=== PATIENT | male | born 1950 | race Caucasian/White ===

== ENCOUNTER → 2017-07-11 | Outpatient (CLI) | payer OTHER ==
[2013-08-18 10:34] VITALS: BP 134/75
--- NOTE | 2017-07-11 13:01 | CT ---
Indication: Shortness of breath Exam: CT chest without contrast. Comparison: Multiple prior studies, the most recent which are from 08/08/2015 Technique: Axial spiral images were obtained from the level above the clavicles through the adrenals without contrast. Coronal and sagittal multiplanar reconstructions were performed. Automated does con trol was utilized. Findings: The thyroid gland is unremarkable. There is moderate calcified plaque throughout the aorta which is normal caliber but unchanged. There are small lymph nodes scattered in the mediastinum measu ring less than 1 cm and appear grossly unchanged. There are moderate coronary artery calcifications w hich are unchanged . There are rounded calcifications in the gallbladder which are better visualized. There are several renal cysts along the upper poles of both kidneys measuring up to 5 cm which are u nchanged. There is a tiny renal stone along the upper pole left kidney with no hydronephrosis which i s unchanged. The lungs are hyperinflated and emphysematous with bullous lesions along both upper lobe s. There is mild linear scarring along the upper lobes which is unchanged. There is moderate intersti tial prominence along the lung bases which is more prominent on the right and is unchanged. There is a 4 mm nodule along the left lower lobe which is unchanged. There small nodules scattered along the r ight lower lobe superiorly measuring up to 6 mm which are unchanged. No effusion or consolidation is seen and there is no new nodule. Degenerative changes are seen in the spine with no aggressive osseou s lesion. Impression: Stable pulmonary nodules scattered along both lung bases with no new nodules seen. These probably rep resent noncalcified granulomas. Bullous emphysematous changes of the lungs with bibasilar fibrosis and scarring which is unchanged wi th no acute infiltrate or effusion. Small lymph nodes in the mediastinum which are not pathologic by size criterion are unchanged. Moderate coronary artery calcifications which are unchanged. Cholelithiasis which more apparent. Probable renal cysts bilaterally which are unchanged. Suggest ultrasound correlation. Reported By:
== END ==
LOC: RAD 10:41
PROVIDERS: ATTEND Nurse Practitioner Family
DX: J44.9 Chronic obstructive pulmonary disease, unspecified (principal); R22.2 Localized swelling, mass and lump, trunk
CPT/HCPCS: 71250

== ENCOUNTER 2018-02-02 02:57 | Inpatient (IN) ==
[2018-02-02 03:05] VITALS: BMI 26.3
[2018-02-02] MEDS ORDERED: SOLU-Medrol 125 MG VIAL ONE (03:07)
[2018-02-02] MEDS ORDERED: DUONEB 0.5 MG/3 MG ONE (03:07)
[2018-02-02] MEDS ORDERED: CATAPRES TAB 0.1 MG ONE (03:07)
[2018-02-02] MEDS ORDERED: CATAPRES TAB 0.1 MG PO ONE (03:09)
[2018-02-02] MEDS ORDERED: NS 1000 ML 1,000 ML IV ONE (03:09)
[2018-02-02] MEDS ORDERED: DUONEB 0.5 MG/3 MG NEB ONE (03:10)
[2018-02-02] MEDS ORDERED: SOLU-Medrol 125 MG VIAL IVP ONE (03:12)
[2018-02-02] MEDS ORDERED: NS 1000 ML 1,000 ML ONE (03:18)
--- NOTE | 2018-02-02 03:31 | DR.CP ---
HPI Time Seen Time Seen by Provider: 02/02/18 03:08 PCP Primary Care Physician: tameka patel Complaint Chief Complaint Doctor Comments: Patient presents with dyspnea, back pain and Chief Complaint:: chest pain, back pain, difficulty breathing Source History Provided: Patient Mode of Arrival Mode of Arrival: EMS Timing Onset of Chief Complaint: 02/02/18 PMH PMH Past Medical History: Yes Past Medical History: COPD, Coronary Artery Disease, Hypertension and [place] Past Surgical History: Yes Surgical History: Abdominal Surgery and Angioplasty/Stents Family History History of Family Medical Conditions: Yes Family Medical History: Diabetes Mellitus and [place] Social History Does patient currently use any type of tobacco product: No Have you used tobacco products in the last 12 months: No Type of Tobacco Use: None Does any household member use tobacco: No Alcohol Use: None Do you use any recreational Drugs:: No Lives With: Family Lives Where: Home infectious screening In the last 2 months have you had wt loss of >10#?: NO Have you had fever, night sweats or hemotysis?: No Have you traveled outside the country in the last 6 months?: No Isolation: Standard PE Vitals Vitals: Temperature 99.1 F Pulse Rate [Left Brachial] 100 Pulse Rate 102 Respiratory Rate 22 Blood Pressure [Left Arm] 111/73 Blood Pressure 180/80 O2 Sat by Pulse Oximetry 94 General Limitations: No Limitations General Appearance: Alert, In No Apparent Distress and In Distress Head Head Exam: Normal Inspection, Atraumatic and Normocephalic Eyes Eye exam: Normal Appearance, PERRL and EOMI ENT ENT Exam: Normal Exam, Normal Oropharynx and Normal External Ear Exam Chest Chest Inspection: Normal Inspection and Symmetric Chest Wall Rise Respiratory Respiratory Exam: Normal Lung Sounds Bilat Respiratory Exam: Bilateral: Wheezing (prolong expiratory phase) Cardiovascular Cardiovascular Exam: Regular Rate and Normal Rhythm Abdominal Exam Abdominal Exam: Normal Inspection, Normal Bowel Sounds and Soft Abdominal Tenderness: RUQ, RLQ and LUQ Extremities Extremities Exam: Normal Inspection and Full ROM Back Back Exam: Normal Inspection and Full ROM Neurologic Neurological Exam: Alert, Oriented X3 and CN II-XII Intact Psychiatric Psychiatric Exam: Normal Affect, Normal Mood and Flat Affect Skin Skin Exam: Dry and Intact ROR Labs Reviewed Result Diagrams: 02/02/18 03:25 02/02/18 03:25 Laboratory: WBC 12.5 X10^3/uL (3.6-10.0) H 02/02/18 03:25 RBC 6.47 X10^6/uL (4.7-6.0) H 02/02/18 03:25 Hgb 19.7 g/dL (13.5-18.0) H* 02/02/18 03:25 Hct 60.0 % (42.0-54.0) H* 02/02/18 03:25 MCV 92.7 fL (80.0-100.0) 02/02/18 03:25 MCH 30.5 pg (27.0-34.0) 02/02/18 03:25 MCHC 32.9 g/dL (33.0-35.0) L 02/02/18 03:25 RDW 15.8 % (11.6-16.5) 02/02/18 03:25 Plt Count 170 X10^3/uL (150.0-450.0) 02/02/18 03:25 MPV 8.2 fL (7.4-11.0) 02/02/18 03:25 Neut % (Auto) 67.0 % (42.0-75.0) 02/02/18 03:25 Lymph % (Auto) 24.9 % (21.0-51.0) 02/02/18 03:25 [place] % (Auto) 4.3 % (0.0-13.0) 02/02/18 03:25 Eos % (Auto) 3.0 % (0.9-2.9) H 02/02/18 03:25 Baso % (Auto) 0.8 % (0.2-1.0) 02/02/18 03:25 Neut # (Auto) 8.4 x10^3/uL (2.2-4.8) H 02/02/18 03:25 Lymph # (Auto) 3.1 X10^3/uL (1.3-2.9) H 02/02/18 03:25 [place] # (Auto) 0.5 x10^3/uL (0.3-0.8) 02/02/18 03:25 Eos # (Auto) 0.4 x10^3/uL (0.0-0.2) H 02/02/18 03:25 Baso # (Auto) 0.1 X10^3/uL (0.0-0.1) 02/02/18 03:25 Absolute Nucleated RBC 0.2 /100WBC 02/02/18 03:25 Sample Site Rr 02/02/18 06:46 ABG pH 7.290 (7.35-7.45) L 02/02/18 06:46 ABG pCO2 42.0 mmHg (35.0-45.0) 02/02/18 06:46 ABG pO2 81.0 mmHg (80.0-100.0) 02/02/18 06:46 ABG HCO3 20.2 mmol/L (22-26) L 02/02/18 06:46 ABG O2 Saturation 94.0 % (90-100) 02/02/18 06:46 ABG Base Excess -6.1 mmol/L (-2.0-2.0) L 02/02/18 06:46 Diomedes Test Pos 02/02/18 06:46 A-a Gradient 580.0 mmHg 02/02/18 06:46 FiO2 100 02/02/18 06:46 Blood Gas Comments Pt jessie well ej 02/02/18 06:46 Sodium 144 mmol/L (136-145) 02/02/18 03:25 Corrected Sodium 145 mmol/L (136-145) 02/02/18 03:25 Potassium 4.6 mmol/L (3.5-5.1) 02/02/18 03:25 Chloride 108 mmol/L (98-107) H 02/02/18 03:25 Carbon Dioxide 28.6 mmol/L (21-32) 02/02/18 03:25 BUN 13 mg/dL (7-18) 02/02/18 03:25 Creatinine 1.48 mg/dL (0.70-1.30) H 02/02/18 03:25 Est GFR (MDRD) Af Amer > 60 (>60) 02/02/18 03:25 Est GFR (MDRD) Non-Af 50 (>60) L 02/02/18 03:25 Glucose 159 mg/dL (65-99) H 02/02/18 03:25 Calcium 8.5 mg/dL (8.5-10.1) 02/02/18 03:25 Corrected Calcium TNP 02/02/18 03:25 Total Bilirubin 1.40 mg/dL (0.2-1.0) H 02/02/18 03:25 AST 25 Units/L (15-37) 02/02/18 03:25 ALT 23 Units/L (12-78) 02/02/18 03:25 Alkaline Phosphatase 64 Units/L (46-116) 02/02/18 03:25 Creatine Kinase 58 Units/L (39-308) 02/02/18 03:25 CK-MB (CK-2) 1.8 ng/mL (0-4.0) 02/02/18 03:25 CK/CKMB % Calc 3.1 % (<4) 02/02/18 03:25 Troponin I 0.01 ng/mL (0-1.5) 02/02/18 03:25 Total Protein 6.7 g/dL (6.4-8.2) 02/02/18 03:25 Albumin 3.8 g/dL (3.4-5.0) 02/02/18 03:25 Globulin 2.9 g/dL (2.5-4.5) 02/02/18 03:25 Albumin/Globulin Ratio 1.3 Ratio (1.1-2.1) 02/02/18 03:25 Diagnosis Discharge Problem: Acute respiratory acidosis, COPD (chronic obstructive pulmonary disease), Multifocal pneumonia
[2018-02-02 03:34] LABS: BASOPHILS # (AUTO) 0.1 X10^3/uL (0.0-0.1); BASOPHILS % (AUTO) 0.8 % (0.2-1.0); EOSINOPHILS # (AUTO) 0.4 x10^3/uL (0.0-0.2); LYMPHOCYTES # (AUTO) 3.1 X10^3/uL (1.3-2.9); LYMPHOCYTES % (AUTO) 24.9 % (21.0-51.0); MEAN CORPUSCULAR HEMOGLOBIN 30.5 pg (27.0-34.0); MEAN CORPUSCULAR HGB CONC 32.9 g/dL (33.0-35.0); MEAN CORPUSCULAR VOLUME 92.7 fL (80.0-100.0); MEAN PLATELET VOLUME 8.2 fL (7.4-11.0); MONOCYTES # (AUTO) 0.5 x10^3/uL (0.3-0.8); MONOCYTES % (AUTO) 4.3 % (0.0-13.0); NEUTROPHILS # (AUTO) 8.4 x10^3/uL (2.2-4.8); PLATELET COUNT 170 X10^3/uL (150.0-450.0); RED BLOOD COUNT 6.47 X10^6/uL (4.7-6.0); RED CELL DISTRIBUTION WIDTH 15.8 % (11.6-16.5); WHITE BLOOD COUNT 12.5 X10^3/uL (3.6-10.0)
[2018-02-02 03:36] LABS: ABG BASE EXCESS -4.7 mmol/L (-2.0-2.0)
[2018-02-02 03:37] LABS: ABG HCO3 24.4 mmol/L (22-26)
[2018-02-02 03:38] LABS: ABG ALLEN TEST POS; FRACTIONATED INSPIRED OXYGEN 100
[2018-02-02 03:50] LABS: HEMOGLOBIN 19.7 g/dL (13.5-18.0)
[2018-02-02 03:56] LABS: BLOOD UREA NITROGEN 13 mg/dL (7-18); CALCIUM 8.5 mg/dL (8.5-10.1); CARBON DIOXIDE 28.6 mmol/L (21-32); CHLORIDE 108 mmol/L (98-107); COR NA(FOR HYPERGLY) 145 mmol/L (136-145); CREATININE 1.48 mg/dL (0.70-1.30); SODIUM 144 mmol/L (136-145); eGFR NON BLACK RACES 50 (>60)
--- NOTE | 2018-02-02 03:58 | RAD ---
Chest AP portable Indication: Dyspnea. Comparison: 11/21/2017 Findings: There is cardiomegaly without pneumothorax. Patchy right lower lung opacity noted. COPD oscar nge noted. Patchy left lower lung opacity is less conspicuous in the right lower lung opacity. Impression: Cardiomegaly and COPD change with worsening right lower lung opacity suggesting pneumonia . Follow-up to resolution to exclude underlying lesion. Multifocal left lower lung pneumonia may be p resent as well. Reported By:
[2018-02-02 04:00] LABS: ALANINE AMINOTRANSFERASE 23 Units/L (12-78); ALBUMIN 3.8 g/dL (3.4-5.0); ALKALINE PHOSPHATASE 64 Units/L (46-116); ASPARTATE AMINO TRANSFERASE 25 Units/L (15-37); TOTAL PROTEIN 6.7 g/dL (6.4-8.2)
[2018-02-02 04:03] LABS: CKMB % 3.1 % (<4); CREATINE KINASE MB 1.8 ng/mL (0-4.0)
[2018-02-02 04:04] LABS: TROPONIN I 0.01 ng/mL (0-1.5)
[2018-02-02] MEDS ORDERED: SALINE 3% 15 ML NEB TX ONE (04:36)
[2018-02-02] MEDS ORDERED: SALINE 3% 15 ML NEB TX NEB ONE (04:45)
[2018-02-02 04:54] LABS: ABG BASE EXCESS -6.3 mmol/L (-2.0-2.0); FRACTIONATED INSPIRED OXYGEN 100
[2018-02-02] MEDS: LEVAQUIN PREMIX IV 750 MG 750 MG/150 ML BAG IV SCH ×2 (05:02→09:17)
[2018-02-02] MEDS ORDERED: ALBUTEROL SULFATE INH PRN (05:56)
[2018-02-02] MEDS ORDERED: ZOFRAN INJ 4 MG VIAL IVP PRN (06:02)
[2018-02-02] MEDS ORDERED: ROBITUSSIN DM PO PRN (06:02)
[2018-02-02] MEDS ORDERED: TYLENOL 325 MG TAB PO PRN (06:02)
[2018-02-02 07:00] LABS: ABG ALLEN TEST POS; ABG BASE EXCESS -6.1 mmol/L (-2.0-2.0); ABG HCO3 20.2 mmol/L (22-26); FRACTIONATED INSPIRED OXYGEN 100
[2018-02-02] MEDS: TYLENOL 325 MG TAB PO PRN ×2 (07:12→23:22)
[2018-02-02] MEDS ORDERED: ZESTRIL TAB 10 MG PO SCH (09:00)
[2018-02-02] MEDS ORDERED: DUONEB 0.5 MG/3 MG NEB SCH (09:00)
[2018-02-02] MEDS ORDERED: PATIENT'S HOME MEDICATION (Lisinopril 10 MG) PO SCH (09:00)
[2018-02-02] MEDS ORDERED: TOPROL XL PO SCH (09:00)
[2018-02-02 09:14] LABS: HEMOGLOBIN 19.8 g/dL (13.5-18.0)
[2018-02-02 09:15] LABS: HEMATOCRIT 58.7 % (42.0-54.0)
[2018-02-02] MEDS: BROVANA IN SCH ×2 (09:18→21:59)
[2018-02-02] MEDS: DUONEB 0.5 MG/3 MG NEB SCH ×4 (09:18→21:59)
[2018-02-02] MEDS: PULMICORT NEB TX 0.5 MG NEB SCH ×2 (09:18→21:59)
[2018-02-02 09:31] LABS: CKMB % 3.1 % (<4); CREATINE KINASE MB 1.9 ng/mL (0-4.0); TROPONIN I 0.05 ng/mL (0-1.5)
[2018-02-02] MEDS ORDERED: PREVNAR 13 IM ONE (10:07)
[2018-02-02] MEDS: NS 1000 ML 1,000 ML IV SCH ×2 (10:11→21:24)
--- NOTE | 2018-02-02 11:37 | DR.H&P ---
H&P - History & Physical for Day of: H&P Date: 02/02/18 - Chief Complaint Chief Complaint: sob, "cannot get a breath" - History of Present Illness History of Present Illness: 67 WM ER ADMISSION WITH CO SUDDEN ONSET OF INCREASED SOB, PT STATES HE COULD NOT GET BREATH "GULPING". PT CALLED EMS, PT WAS HYPOXIC ON ARRIVAL TO ED. PT HAD ABNORMAL CXR SUGGESTION PNEUMONIA. PT WAS PLACED ON BIPAP ADMITTED TO ICU. 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 PT HAS PMH OF CAD, WITH ANGIOPLASTY AND STENT PLACEMENT LAST CATH IN ~[address] FRITZ AT [facility]. 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 PT USES O2. - Past Medical History Past Medical History: [place], Coronary Artery Disease, Hypertension, COPD - Past Surgical History Surgical History: Abdominal Surgery, Angioplasty/Stents - Family History Family Medical History: Diabetes Mellitus, [place] - Social History Does patient currently use any type of tobacco product: No Have you used tobacco products in the last 12 months: No Type of Tobacco Use: None Does any household member use tobacco: No Alcohol Use: None Drug Use: None - Medications Home Medications: No Known Drug Allergies Allergy (Verified 02/02/18 03:06) CONTINUE taking the following medications aspirin 81 mg PO QDAY 02/02/18 [History] atorvastatin 20 mg PO QDAY 02/02/18 [History] carvedilol 12.5 mg PO BID 02/02/18 [History] - Review of Systems Constitutional: Weakness Eyes: No Symptoms Reported ENT: Nose Congestion Respiratory: Shortness of Breath, SOB with Excertion, Wheezing Cardiovascular: Chest Pain, Edema Gastrointestinal: No Symptoms Reported Genitourinary: No Symptoms Reported Musculoskeletal: Back Pain Skin: No Symptoms Reported Neurological: Weakness - Physical Exam Vital Signs: Temperature 98 F Pulse Rate [Left Brachial] 81 Pulse Rate 97 Respiratory Rate 20 Blood Pressure [Left Arm] 112/68 Blood Pressure 180/80 O2 Sat by Pulse Oximetry 96 Oriented: Normal Eyes: Normal Ear: Normal Nose: Normal Throat: Dry Respiratory: Diminished Throughout, RLL Rhonchi, LLL Rhonchi Cardiovascular: Tachycardia, Edema : Normal Auscultation: Bowel Sounds: Normal Palpation: Normal Tenderness: Normal Skin: Decreased Turgur Musculoskeletal: Back:Lumbar Psychiatric: Anxiety Mood Description: Anxious Affect: Anxious Speech Pattern: Clear (BUT LABORED RESPIRATIONS) - Assessment/Plan (1) SOB (shortness of breath) Status: Acute Plan: ADMIT, ICU, BIPAP, SUPPLEMENTAL O2, SERIAL CE. EKGS CXR ON ADMISSION, SERIAL ABG'S. JET NEBS, BLOOD AND SPUTUM CULTURES ORDERED ON ADMISSION. LOVENOX SQ, BP AND CARDIAC MONITORING. IV ATBX, VERIFY HOME MEDS (2) Acute respiratory acidosis Status: Acute (3) COPD (chronic obstructive pulmonary disease) Qualifiers: COPD type: COPD with acute exacerbation Qualified Code(s): J44.1 - Chronic obstructive pulmonary disease with (acute) exacerbation Status: Acute (4) Multifocal pneumonia Status: Acute - Allergies Allergies/Adverse Reactions: Allergies Allergy/AdvReac Type Severity Reaction Status Date / Time No Known Drug Allergies Allergy Verified 02/02/18 03:06
[2018-02-02] MEDS ORDERED: NS 100 ML IV + SPIKE MINIBAG* 100 ML IV ONE ×2 (13:58→20:59)
[2018-02-02] MEDS: ZOSYN VIAL 4.5 GRAMS IV SCH ×2 (14:16→21:25)
[2018-02-02 14:29] LABS: BILIRUBIN,URINE NEGATIVE (NEGATIVE); BLOOD/HEMOGLOBIN,URINE NEGATIVE (NEGATIVE); GLUCOSE, URINE NEGATIVE (NEGATIVE); KETONES,URINE 1+ (NEGATIVE); LEUKOCYTE ESTERASE ,URINE NEGATIVE (NEGATIVE); NITRITES,URINE NEGATIVE (NEGATIVE); PROTEIN,URINE 2+ (NEGATIVE); UROBILINOGEN,URINE NORMAL (NORMAL)
[2018-02-02 15:01] LABS: AMORPHOUS SEDIMENT,UR 1+ /HPF (NEGATIVE); APPEARANCE,URINE CLOUDY (CLEAR); BACTERIA,URINE TRACE /HPF (NEGATIVE); CALCIUM OXALATE CRYSTALS,UR FEW /HPF (NEGATIVE); COLOR,URINE DARK YELLOW (YELLOW); MUCUS,URINE FEW /HPF (NEGATIVE); RBC,URINE 0-2 /HPF (NONE SEEN); SQUAMOUS EPITHELIAL CELL,UR FEW /HPF (NEGATIVE)
[2018-02-02 16:19] LABS: CREATINE KINASE MB 1.9 ng/mL (0-4.0); TROPONIN I 0.03 ng/mL (0-1.5)
[2018-02-02] MEDS: SOLU-Medrol 40 MG VIAL IVP SCH (21:25)
[2018-02-03] MEDS: DUONEB 0.5 MG/3 MG NEB SCH ×6 (01:15→21:57)
[2018-02-03] MEDS ORDERED: NS 500 ML IV 500 ML IV ONE (01:25)
[2018-02-03] MEDS ORDERED: NS 100 ML IV + SPIKE MINIBAG* 100 ML IV ONE ×3 (04:19→21:03)
[2018-02-03] MEDS: SOLU-Medrol 40 MG VIAL IVP SCH ×3 (05:11→21:09)
[2018-02-03] MEDS: ZOSYN VIAL 4.5 GRAMS IV SCH ×3 (05:12→21:12)
[2018-02-03 06:22] LABS: ABG BASE EXCESS -11.1 mmol/L (-2.0-2.0)
[2018-02-03 06:23] LABS: ABG HCO3 12.4 mmol/L (22-26); FRACTIONATED INSPIRED OXYGEN 80
[2018-02-03 06:36] LABS: BASOPHILS % (AUTO) 0.2 % (0.2-1.0); HEMATOCRIT 51.3 % (42.0-54.0); HEMOGLOBIN 17.1 g/dL (13.5-18.0); LYMPHOCYTES # (AUTO) 0.9 X10^3/uL (1.3-2.9); LYMPHOCYTES % (AUTO) 9.8 % (21.0-51.0); MEAN CORPUSCULAR HEMOGLOBIN 30.8 pg (27.0-34.0); MEAN CORPUSCULAR HGB CONC 33.4 g/dL (33.0-35.0); MEAN PLATELET VOLUME 8.6 fL (7.4-11.0); MONOCYTES # (AUTO) 0.5 x10^3/uL (0.3-0.8); MONOCYTES % (AUTO) 6.1 % (0.0-13.0); NEUTROPHILS # (AUTO) 7.5 x10^3/uL (2.2-4.8); NEUTROPHILS % (AUTO) 83.9 % (42.0-75.0); PLATELET COUNT 96 X10^3/uL (150.0-450.0); RED BLOOD COUNT 5.57 X10^6/uL (4.7-6.0); RED CELL DISTRIBUTION WIDTH 15.6 % (11.6-16.5)
[2018-02-03 06:45] LABS: ALBUMIN 2.7 g/dL (3.4-5.0); CALCIUM 7.8 mg/dL (8.5-10.1); CARBON DIOXIDE 22.6 mmol/L (21-32); COR CA(FOR HYPOALB) 8.8 mg/dL (8.5-10.1); CREATININE 1.52 mg/dL (0.70-1.30); TOTAL PROTEIN 5.4 g/dL (6.4-8.2)
[2018-02-03] MEDS: LEVAQUIN PREMIX IV 500 MG 500 MG/100 ML BAG IV SCH (08:02)
[2018-02-03] MEDS: BROVANA IN SCH ×2 (09:19→21:57)
[2018-02-03] MEDS: PULMICORT NEB TX 0.5 MG NEB SCH ×2 (09:20→21:57)
--- NOTE | 2018-02-03 10:12 | RAD ---
HISTORY: Shortness of breath Study: Chest AP portable Comparison: 02/02/2018 Findings: Positioning is suboptimal as the costophrenic angles are not included on the image. The heart is mini seth enlarged. No congestive heart failure is noted. The lungs are generally hyperinflated. Intersti tial lung changes are present bilaterally. There is a superimposed alveolar infiltrate in the right l sean base suggestive of pneumonia. Pleural effusions cannot be excluded as the costophrenic angles are not included on the image. IMPRESSION: COPD with interstitial lung disease No change right lower lobe pneumonia Reported By:
[2018-02-03] MEDS: NS 1000 ML 1,000 ML IV SCH (10:28)
[2018-02-03] MEDS ORDERED: NS 100 ML IV 0 ML IV ONE (21:00)
[2018-02-03] MEDS ORDERED: NS 250 ML IV 0 ML IV ONE (21:01)
[2018-02-04] MEDS: NS 1000 ML 1,000 ML IV SCH ×3 (00:23→13:46)
[2018-02-04] MEDS: DUONEB 0.5 MG/3 MG NEB SCH ×6 (01:11→20:20)
[2018-02-04] MEDS ORDERED: NS 100 ML IV + SPIKE MINIBAG* 100 ML IV ONE ×3 (05:35→21:32)
[2018-02-04 05:49] LABS: BASOPHILS % (AUTO) 0.1 % (0.2-1.0); HEMATOCRIT 48.6 % (42.0-54.0); HEMOGLOBIN 16.4 g/dL (13.5-18.0); LYMPHOCYTES # (AUTO) 0.6 X10^3/uL (1.3-2.9); LYMPHOCYTES % (AUTO) 6.8 % (21.0-51.0); MEAN CORPUSCULAR HEMOGLOBIN 30.9 pg (27.0-34.0); MEAN CORPUSCULAR HGB CONC 33.7 g/dL (33.0-35.0); MEAN CORPUSCULAR VOLUME 91.6 fL (80.0-100.0); MEAN PLATELET VOLUME 8.5 fL (7.4-11.0); MONOCYTES # (AUTO) 0.6 x10^3/uL (0.3-0.8); MONOCYTES % (AUTO) 6.9 % (0.0-13.0); NEUTROPHILS # (AUTO) 7.9 x10^3/uL (2.2-4.8); NEUTROPHILS % (AUTO) 86.2 % (42.0-75.0); PLATELET COUNT 94 X10^3/uL (150.0-450.0); RED BLOOD COUNT 5.31 X10^6/uL (4.7-6.0); RED CELL DISTRIBUTION WIDTH 15.4 % (11.6-16.5); WHITE BLOOD COUNT 9.2 X10^3/uL (3.6-10.0)
[2018-02-04] MEDS: SOLU-Medrol 40 MG VIAL IVP SCH ×3 (05:49→21:49)
[2018-02-04] MEDS: ZOSYN VIAL 4.5 GRAMS IV SCH ×3 (05:50→21:50)
[2018-02-04 06:10] LABS: ALANINE AMINOTRANSFERASE 18 Units/L (12-78); ALBUMIN 2.5 g/dL (3.4-5.0); ALKALINE PHOSPHATASE 30 Units/L (46-116); ASPARTATE AMINO TRANSFERASE 14 Units/L (15-37); BLOOD UREA NITROGEN 24 mg/dL (7-18); CALCIUM 8.1 mg/dL (8.5-10.1); CARBON DIOXIDE 23.7 mmol/L (21-32); CHLORIDE 109 mmol/L (98-107); COR CA(FOR HYPOALB) 9.3 mg/dL (8.5-10.1); COR NA(FOR HYPERGLY) 142 mmol/L (136-145); CREATININE 1.17 mg/dL (0.70-1.30); SODIUM 141 mmol/L (136-145); TOTAL PROTEIN 5.4 g/dL (6.4-8.2); eGFR NON BLACK RACES > 60 (>60)
[2018-02-04 08:31] LABS: ABG ALLEN TEST POS; ABG BASE EXCESS -2.5 mmol/L (-2.0-2.0); ABG HCO3 22.5 mmol/L (22-26); FRACTIONATED INSPIRED OXYGEN 50
[2018-02-04] MEDS: BROVANA IN SCH ×2 (09:11→20:20)
[2018-02-04] MEDS: PULMICORT NEB TX 0.5 MG NEB SCH ×2 (09:12→20:20)
[2018-02-04] MEDS: LEVAQUIN PREMIX IV 500 MG 500 MG/100 ML BAG IV SCH (09:16)
--- NOTE | 2018-02-04 13:26 | PCM.PROG ---
Progress Note - Progress Note for Day of Date of Exam: 02/04/18 - Subjective Subjective: 67 WM ER ADMISSION WITH ACUTE ON CHRONIC RESP FAILURE, PNEUMONIA, AND CHEST PAIN. PT HAD SERIAL CE ENZYMES ON ADMISSION, ICU FOR CONTINUOUS CARDIAC MONITORING AND BIPAP MANAGEMENT. PT ABG THIS AM, PH 7.37 IMPROVING WITH PCO2 39, PT CONTINUES WITH BIPAP AT 50%, TAKEN OFF THIS AM TO EAT AND TOLERATED NASAL CANULA FOR SHORT PERIOD, SATS DROPPING INTO 80'S. DISCUSSED THE NEED FOR CARDIAC EVALUATION, PT AND FAMILY AGREES FOR TRANSFER TO TERTIARY CARE FACILITY. - Past Medical Family Social History Past Med/Fam/Surg Hx: No changes since H&P Allergies: Allergies No Known Drug Allergies Allergy (Verified 02/02/18 03:06) - Vital Signs and I&O's Vital Signs: Temperature 97.3 F Pulse Rate [Left Brachial] 67 Pulse Rate 89 Respiratory Rate 23 Blood Pressure [Left Arm] 125/70 Blood Pressure 131/70 O2 Sat by Pulse Oximetry 96 Intake and Output: Intake & Output 02/02/18 02/03/18 02/04/18 02/05/18 11:59 11:59 11:59 11:59 Intake Total 2850 / 2850 2660 / 2660 Output Total 800 / 800 500 / 500 Balance 2049 / 2049 2160 / 2160 - Physical Exam Oriented: Normal Eyes: Normal Ear: Normal Nose: Normal Throat: Dry Respiratory: Diminished Cardiovascular: Tachycardia, Edema : Normal Auscultation: Bowel Sounds: Normal Tenderness: Normal Skin: Decreased Turgur Musculoskeletal: Back:Lumbar Psychiatric: Anxiety Mood Description: Anxious Affect: Anxious Speech Pattern: Clear, Appropriate - Laboratory and Diagnostics Result Diagrams: 02/04/18 05:25 02/04/18 05:25 Labs: 02/02/18 04:30 Blood Blood Culture - Preliminary 02/02/18 04:20 Blood Blood Culture - Preliminary 02/02/18 14:07 Sputum - Expectorated Sputum Sputum Culture - Final 02/02/18 14:07 Sputum - Expectorated Sputum - Final Laboratory WBC 9.2 X10^3/uL (3.6-10.0) 02/04/18 05:25 RBC 5.31 X10^6/uL (4.7-6.0) 02/04/18 05:25 Hgb 16.4 g/dL (13.5-18.0) 02/04/18 05:25 Hct 48.6 % (42.0-54.0) 02/04/18 05:25 MCV 91.6 fL (80.0-100.0) 02/04/18 05:25 MCH 30.9 pg (27.0-34.0) 02/04/18 05:25 MCHC 33.7 g/dL (33.0-35.0) 02/04/18 05:25 RDW 15.4 % (11.6-16.5) 02/04/18 05:25 Plt Count 94 X10^3/uL (150.0-450.0) L 02/04/18 05:25 MPV 8.5 fL (7.4-11.0) 02/04/18 05:25 Neut % (Auto) 86.2 % (42.0-75.0) H 02/04/18 05:25 Lymph % (Auto) 6.8 % (21.0-51.0) L 02/04/18 05:25 [place] % (Auto) 6.9 % (0.0-13.0) 02/04/18 05:25 Eos % (Auto) 0.0 % (0.9-2.9) L 02/04/18 05:25 Baso % (Auto) 0.1 % (0.2-1.0) L 02/04/18 05:25 Neut # (Auto) 7.9 x10^3/uL (2.2-4.8) H 02/04/18 05:25 Lymph # (Auto) 0.6 X10^3/uL (1.3-2.9) L 02/04/18 05:25 [place] # (Auto) 0.6 x10^3/uL (0.3-0.8) 02/04/18 05:25 Eos # (Auto) 0.0 x10^3/uL (0.0-0.2) 02/04/18 05:25 Baso # (Auto) 0.0 X10^3/uL (0.0-0.1) 02/04/18 05:25 Absolute Nucleated RBC 0.0 /100WBC 02/04/18 05:25 Sample Site Rr 02/04/18 08:26 ABG pH 7.370 (7.35-7.45) 02/04/18 08:26 ABG pCO2 39.0 mmHg (35.0-45.0) 02/04/18 08:26 ABG pO2 64.0 mmHg (80.0-100.0) L 02/04/18 08:26 ABG HCO3 22.5 mmol/L (22-26) 02/04/18 08:26 ABG O2 Saturation 91.0 % (90-100) 02/04/18 08:26 ABG Base Excess -2.5 mmol/L (-2.0-2.0) L 02/04/18 08:26 Diomedes Test Pos 02/04/18 08:26 A-a Gradient 244.0 mmHg 02/04/18 08:26 FiO2 50 02/04/18 08:26 Blood Gas Comments Pt jessie well. cdn 02/04/18 08:26 Sodium 141 mmol/L (136-145) 02/04/18 05:25 Corrected Sodium 142 mmol/L (136-145) 02/04/18 05:25 Potassium 4.7 mmol/L (3.5-5.1) 02/04/18 05:25 Chloride 109 mmol/L (98-107) H 02/04/18 05:25 Carbon Dioxide 23.7 mmol/L (21-32) 02/04/18 05:25 BUN 24 mg/dL (7-18) H 02/04/18 05:25 Creatinine 1.17 mg/dL (0.70-1.30) 02/04/18 05:25 Est GFR (MDRD) Af Amer > 60 (>60) 02/04/18 05:25 Est GFR (MDRD) Non-Af > 60 (>60) 02/04/18 05:25 Glucose 155 mg/dL (65-99) H 02/04/18 05:25 Calcium 8.1 mg/dL (8.5-10.1) L 02/04/18 05:25 Corrected Calcium 9.3 mg/dL (8.5-10.1) 02/04/18 05:25 Total Bilirubin 1.20 mg/dL (0.2-1.0) H 02/04/18 05:25 AST 14 Units/L (15-37) L 02/04/18 05:25 ALT 18 Units/L (12-78) 02/04/18 05:25 Alkaline Phosphatase 30 Units/L (46-116) L 02/04/18 05:25 Creatine Kinase 95 Units/L (39-308) 02/02/18 15:28 CK-MB (CK-2) 1.9 ng/mL (0-4.0) 02/02/18 15:28 CK/CKMB % Calc 2.0 % (<4) 02/02/18 15:28 Troponin I 0.03 ng/mL (0-1.5) 02/02/18 15:28 Total Protein 5.4 g/dL (6.4-8.2) L 02/04/18 05:25 Albumin 2.5 g/dL (3.4-5.0) L 02/04/18 05:25 Globulin 2.9 g/dL (2.5-4.5) 02/04/18 05:25 Albumin/Globulin Ratio 0.9 Ratio (1.1-2.1) L 02/04/18 05:25 Specimen Type Clean catch urine 02/02/18 14:07 Urine Color Dark yellow (YELLOW) 02/02/18 14:07 Urine Appearance Cloudy (CLEAR) 02/02/18 14:07 Urine pH 5.0 (5.0 - 8.0) 02/02/18 14:07 Ur Specific Adkins 1.030 (1.000-1.030) 02/02/18 14:07 Urine Protein 2+ (NEGATIVE) 02/02/18 14:07 Urine Glucose (UA) Negative (NEGATIVE) 02/02/18 14:07 Urine Ketones 1+ (NEGATIVE) 02/02/18 14:07 Urine Occult Blood Negative (NEGATIVE) 02/02/18 14:07 Urine Nitrite Negative (NEGATIVE) 02/02/18 14:07 Urine Bilirubin Negative (NEGATIVE) 02/02/18 14:07 Urine Urobilinogen Normal (NORMAL) 02/02/18 14:07 Ur Leukocyte Esterase Negative (NEGATIVE) 02/02/18 14:07 Urine RBC 0-2 /HPF (NONE SEEN) 02/02/18 14:07 Urine WBC 0-2 /HPF (NONE SEEN) 02/02/18 14:07 Ur Squamous Epith Cells Few /HPF (NEGATIVE) 02/02/18 14:07 Calcium Oxalate Crystal Few /HPF (NEGATIVE) 02/02/18 14:07 Amorphous Sediment 1+ /HPF (NEGATIVE) 02/02/18 14:07 Urine Bacteria Trace /HPF (NEGATIVE) 02/02/18 14:07 Urine Mucus Few /HPF (NEGATIVE) 02/02/18 14:07 Ur Culture Indicated? No/not indicated 02/02/18 14:07 - Plan (1) SOB (shortness of breath) Status: Acute Plan: ICU, BIPAP, SUPPLEMENTAL O2, SERIAL CE. EKGS CXR ON ADMISSION, SERIAL ABG'S. JET NEBS, BLOOD AND SPUTUM CULTURES ORDERED ON ADMISSION. LOVENOX SQ, BP AND CARDIAC MONITORING. IV ATBX, AM LABS (2) Acute respiratory acidosis Status: Acute (3) COPD (chronic obstructive pulmonary disease) Status: Acute Qualifiers: COPD type: COPD with acute exacerbation Qualified Code(s): J44.1 - Chronic obstructive pulmonary disease with (acute) exacerbation (4) Multifocal pneumonia Status: Acute (5) Acute and chronic respiratory failure Status: Acute (6) Acute and chronic respiratory failure with hypoxia Status: Acute
[2018-02-05] MEDS: DUONEB 0.5 MG/3 MG NEB SCH ×6 (01:24→20:50)
[2018-02-05] MEDS: NS 1000 ML 1,000 ML IV SCH ×3 (03:30→21:42)
[2018-02-05] MEDS ORDERED: NS 100 ML IV + SPIKE MINIBAG* 100 ML IV ONE ×3 (04:44→21:35)
[2018-02-05] MEDS: SOLU-Medrol 40 MG VIAL IVP SCH ×3 (05:00→21:42)
[2018-02-05] MEDS: ZOSYN VIAL 4.5 GRAMS IV SCH ×3 (05:00→21:42)
[2018-02-05 05:55] LABS: BASOPHILS % (AUTO) 0.3 % (0.2-1.0); HEMATOCRIT 48.2 % (42.0-54.0); HEMOGLOBIN 16.3 g/dL (13.5-18.0); LYMPHOCYTES # (AUTO) 0.7 X10^3/uL (1.3-2.9); LYMPHOCYTES % (AUTO) 7.1 % (21.0-51.0); MEAN CORPUSCULAR HEMOGLOBIN 30.6 pg (27.0-34.0); MEAN CORPUSCULAR HGB CONC 33.9 g/dL (33.0-35.0); MEAN CORPUSCULAR VOLUME 90.4 fL (80.0-100.0); MEAN PLATELET VOLUME 8.5 fL (7.4-11.0); MONOCYTES # (AUTO) 0.6 x10^3/uL (0.3-0.8); MONOCYTES % (AUTO) 6.1 % (0.0-13.0); NEUTROPHILS # (AUTO) 8.1 x10^3/uL (2.2-4.8); NEUTROPHILS % (AUTO) 86.5 % (42.0-75.0); PLATELET COUNT 106 X10^3/uL (150.0-450.0); RED BLOOD COUNT 5.33 X10^6/uL (4.7-6.0); RED CELL DISTRIBUTION WIDTH 15.8 % (11.6-16.5); WHITE BLOOD COUNT 9.3 X10^3/uL (3.6-10.0)
[2018-02-05 06:15] LABS: ALANINE AMINOTRANSFERASE 20 Units/L (12-78); ALBUMIN 2.5 g/dL (3.4-5.0); ALKALINE PHOSPHATASE 34 Units/L (46-116); ASPARTATE AMINO TRANSFERASE 26 Units/L (15-37); BLOOD UREA NITROGEN 20 mg/dL (7-18); CALCIUM 8.3 mg/dL (8.5-10.1); CARBON DIOXIDE 24.6 mmol/L (21-32); CHLORIDE 110 mmol/L (98-107); COR CA(FOR HYPOALB) 9.5 mg/dL (8.5-10.1); COR NA(FOR HYPERGLY) 143 mmol/L (136-145); SODIUM 141 mmol/L (136-145); TOTAL PROTEIN 5.7 g/dL (6.4-8.2); eGFR NON BLACK RACES > 60 (>60)
[2018-02-05] MEDS: PULMICORT NEB TX 0.5 MG NEB SCH ×2 (08:33→20:50)
[2018-02-05] MEDS: BROVANA IN SCH ×2 (08:33→20:50)
[2018-02-05] MEDS: LEVAQUIN PREMIX IV 500 MG 500 MG/100 ML BAG IV SCH (08:36)
[2018-02-05] MEDS ORDERED: ASPIRIN 81 MG CHEWTAB PO SCH (11:00)
[2018-02-05] MEDS: LIPITOR TAB 20 MG PO SCH (11:30)
[2018-02-06] MEDS: DUONEB 0.5 MG/3 MG NEB SCH ×6 (00:51→21:23)
[2018-02-06] MEDS: NS 1000 ML 1,000 ML IV SCH (03:49)
[2018-02-06] MEDS ORDERED: NS 100 ML IV + SPIKE MINIBAG* 100 ML IV ONE ×3 (04:54→20:31)
[2018-02-06] MEDS: ZOSYN VIAL 4.5 GRAMS IV SCH ×3 (05:04→21:08)
[2018-02-06 06:22] LABS: BASOPHILS % (AUTO) 0 % (0.2-1.0); HEMATOCRIT 48.6 % (42.0-54.0); HEMOGLOBIN 16.5 g/dL (13.5-18.0); LYMPHOCYTES # (AUTO) 0.6 X10^3/uL (1.3-2.9); LYMPHOCYTES % (AUTO) 8.2 % (21.0-51.0); MEAN CORPUSCULAR HEMOGLOBIN 30.7 pg (27.0-34.0); MEAN CORPUSCULAR HGB CONC 33.9 g/dL (33.0-35.0); MEAN CORPUSCULAR VOLUME 90.8 fL (80.0-100.0); MEAN PLATELET VOLUME 8.7 fL (7.4-11.0); MONOCYTES # (AUTO) 0.5 x10^3/uL (0.3-0.8); MONOCYTES % (AUTO) 6.9 % (0.0-13.0); NEUTROPHILS # (AUTO) 5.9 x10^3/uL (2.2-4.8); NEUTROPHILS % (AUTO) 84.9 % (42.0-75.0); PLATELET COUNT 96 X10^3/uL (150.0-450.0); RED BLOOD COUNT 5.36 X10^6/uL (4.7-6.0); RED CELL DISTRIBUTION WIDTH 15.8 % (11.6-16.5); WHITE BLOOD COUNT 6.9 X10^3/uL (3.6-10.0)
[2018-02-06 06:34] LABS: ALANINE AMINOTRANSFERASE 31 Units/L (12-78); ALBUMIN 2.5 g/dL (3.4-5.0); ALKALINE PHOSPHATASE 46 Units/L (46-116); ASPARTATE AMINO TRANSFERASE 24 Units/L (15-37); BLOOD UREA NITROGEN 18 mg/dL (7-18); CALCIUM 8.1 mg/dL (8.5-10.1); CARBON DIOXIDE 26.1 mmol/L (21-32); CHLORIDE 108 mmol/L (98-107); COR CA(FOR HYPOALB) 9.3 mg/dL (8.5-10.1); COR NA(FOR HYPERGLY) 144 mmol/L (136-145); CREATININE 1.03 mg/dL (0.70-1.30); SODIUM 142 mmol/L (136-145); TOTAL PROTEIN 5.6 g/dL (6.4-8.2); eGFR NON BLACK RACES > 60 (>60)
[2018-02-06 06:56] LABS: BAND NEUTROPHILS % 3 % (0-10); PLATELET MORPHOLOGY COMMENT NORMAL (NORMAL)
--- NOTE | 2018-02-06 09:04 | RAD ---
HISTORY: Shortness of breath Study: Chest AP portable Comparison: 02/03/2018 Findings: The heart remains minimally enlarged. No definite congestive heart failure is noted. The lungs are ge nerally hyperinflated. Interstitial lung changes are present bilaterally not significantly different in appearance from the prior examination. The superimposed right basilar alveolar infiltrate noted on the prior examination has significantly improved. No definite pleural effusions are identified. IMPRESSION: COPD with interstitial lung changes Significant improvement in the superimposed right basilar alveolar infiltrate Reported By:
[2018-02-06] MEDS: BROVANA IN SCH ×2 (09:09→21:23)
[2018-02-06] MEDS: PULMICORT NEB TX 0.5 MG NEB SCH ×2 (09:09→21:23)
[2018-02-06] MEDS: ASPIRIN EC 81 MG PO SCH (10:19)
[2018-02-06] MEDS: LEVAQUIN PREMIX IV 500 MG 500 MG/100 ML BAG IV SCH (10:19)
[2018-02-06] MEDS: LIPITOR TAB 20 MG PO SCH (10:20)
[2018-02-06] MEDS: PROTONIX INJ 40 MG VIAL IVP SCH (10:20)
[2018-02-06] MEDS: ROBITUSSIN DM PO PRN ×2 (10:35→21:09)
[2018-02-06] MEDS ORDERED: NS 1000 ML 1,000 ML IV SCH (11:00)
[2018-02-06 16:15] LABS: ABG BASE EXCESS 1.5 mmol/L (-2.0-2.0); ABG HCO3 25.9 mmol/L (22-26)
[2018-02-06 16:16] LABS: ABG ALLEN TEST POS; FRACTIONATED INSPIRED OXYGEN 35
--- NOTE | 2018-02-06 16:23 | CT ---
STUDY: CTA CHEST WITH CONTRAST History: Shortness of breath. Low O2 saturations. Comparison: Chest radiograph from February 06, 2018. Technique: Multiple axial images of the chest were obtained from the thoracic inlet to the upper abdo men after the administration of IV contrast. Image acquisition was optimized for evaluation of pulmon peyman arterial system. 3D, coronal and sagittal reformatted images were performed and reviewed. Automat ed exposure control (AEC) was utilized to adjust the MA and/or kV. Findings: There is no evidence of abnormal filling defect in the main pulmonary arteries and their major branch es to indicate presence of acute pulmonary thromboembolic disease. There is no evidence of aortic ane urysm or dissection. There is no significant pericardial effusion. Multiple lymph nodes are noted in the mediastinum. There several enlarged sub-carinal lymph nodes that measure just over 2 cm. There is extensive emphysematous change throughout both lungs. There is focal consolidative airspace opacity in the dependent portion of the right lower lobe. There is a moderate size right-sided pleura l effusion. There is a small left-sided pleural effusion. The visualized solid visceral organs in the upper abdomen are otherwise unremarkable. IMPRESSION: 1. No evidence of acute pulmonary thromboembolic disease. 2. Severe COPD with emphysema in both lungs. 3. Consolidative airspace opacity in the right lower lobe. 4. Mediastinal lymphadenopathy with several enlarged lymph nodes measuring greater than 2 cm. 5. Bilateral pleural effusions, right greater than left. Reported By:
[2018-02-06] MEDS ORDERED: LASIX IVP ONE (16:36)
[2018-02-06] MEDS: SOLU-Medrol 40 MG VIAL IVP SCH ×2 (17:08→21:09)
[2018-02-06] MEDS ORDERED: CATAPRES TAB 0.1 MG PO PRN (17:14)
[2018-02-06] MEDS ORDERED: ATARAX TAB 10 MG PO PRN (17:15)
[2018-02-06] MEDS ORDERED: APRESOLINE INJ 20 MG VIAL IVP PRN (17:20)
[2018-02-06] MEDS: ZESTRIL TAB 10 MG PO SCH (17:30)
[2018-02-06] MEDS: TOPROL XL PO SCH (17:30)
--- NOTE | 2018-02-06 17:48 | PCM.PROG ---
Progress Note - Progress Note for Day of Date of Exam: 02/05/18 - Subjective Subjective: 67 WM ER ADMISSION WITH ACUTE ON CHRONIC RESP FAILURE, PNEUMONIA, AND CHEST PAIN. PT HAD SERIAL CE ENZYMES ON ADMISSION, ICU FOR CONTINUOUS CARDIAC MONITORING AND BIPAP MANAGEMENT. PT ABG THIS AM, REPEAT ABD THIS, PT CONTINUES WITH BIPAP AT 40%, TAKEN OFF THIS AM TO EAT AND TOLERATED NASAL CANULA FOR SHORT PERIOD, SATS DROPPING INTO 80'S. PT STATES HE HAD A BAD NIGHT LAST, RESTLESS - Past Medical Family Social History Past Med/Fam/Surg Hx: No changes since H&P Allergies: Allergies No Known Drug Allergies Allergy (Verified 02/02/18 03:06) - Vital Signs and I&O's Vital Signs: Temperature 98.4 F Pulse Rate [Left Brachial] 67 Pulse Rate 104 Respiratory Rate 19 Blood Pressure [Left Arm] 125/70 Blood Pressure 174/103 O2 Sat by Pulse Oximetry 88 Intake and Output: Intake & Output 02/04/18 02/05/18 02/06/18 02/07/18 11:59 11:59 11:59 11:59 Intake Total 2660 / 2660 2950 / 2950 2740 / 2740 790 / 790 Output Total 500 / 500 1310 / 1310 1350 / 1350 725 / 725 Balance 2160 / 2160 1640 / 1640 1390 / 1390 65 / 65 - Physical Exam Oriented: Normal Eyes: Normal Ear: Normal Nose: Normal Throat: Dry Respiratory: Diminished Cardiovascular: Tachycardia, Edema : Normal Auscultation: Bowel Sounds: Normal Tenderness: Normal Skin: Decreased Turgur Musculoskeletal: Back:Lumbar Psychiatric: Anxiety Mood Description: Anxious Affect: Anxious Speech Pattern: Clear, Appropriate - Laboratory and Diagnostics Result Diagrams: 02/06/18 05:45 02/06/18 05:45 Labs: 02/02/18 04:30 Blood Blood Culture - Preliminary 02/02/18 04:20 Blood Blood Culture - Preliminary 02/02/18 14:07 Sputum - Expectorated Sputum Sputum Culture - Final 02/02/18 14:07 Sputum - Expectorated Sputum - Final Laboratory WBC 6.9 X10^3/uL (3.6-10.0) 02/06/18 05:45 RBC 5.36 X10^6/uL (4.7-6.0) 02/06/18 05:45 Hgb 16.5 g/dL (13.5-18.0) 02/06/18 05:45 Hct 48.6 % (42.0-54.0) 02/06/18 05:45 MCV 90.8 fL (80.0-100.0) 02/06/18 05:45 MCH 30.7 pg (27.0-34.0) 02/06/18 05:45 MCHC 33.9 g/dL (33.0-35.0) 02/06/18 05:45 RDW 15.8 % (11.6-16.5) 02/06/18 05:45 Plt Count 96 X10^3/uL (150.0-450.0) L 02/06/18 05:45 Plt Count Comment Adequate (ADEQUATE) 02/06/18 05:45 MPV 8.7 fL (7.4-11.0) 02/06/18 05:45 Neut % (Auto) 84.9 % (42.0-75.0) H 02/06/18 05:45 Lymph % (Auto) 8.2 % (21.0-51.0) L 02/06/18 05:45 [place] % (Auto) 6.9 % (0.0-13.0) 02/06/18 05:45 Eos % (Auto) 0.0 % (0.9-2.9) L 02/06/18 05:45 Baso % (Auto) 0 % (0.2-1.0) L 02/06/18 05:45 Neut # (Auto) 5.9 x10^3/uL (2.2-4.8) H 02/06/18 05:45 Lymph # (Auto) 0.6 X10^3/uL (1.3-2.9) L 02/06/18 05:45 [place] # (Auto) 0.5 x10^3/uL (0.3-0.8) 02/06/18 05:45 Eos # (Auto) 0.0 x10^3/uL (0.0-0.2) 02/06/18 05:45 Baso # (Auto) 0.0 X10^3/uL (0.0-0.1) 02/06/18 05:45 Absolute Nucleated RBC 0.1 /100WBC 02/06/18 05:45 Total Counted 100 02/06/18 05:45 Neutrophils % (Manual) 86 % (39-76) H 02/06/18 05:45 Band Neutrophils % 3 % (0-10) 02/06/18 05:45 Lymphocytes % (Manual) 8 % (13-43) L 02/06/18 05:45 Monocytes % (Manual) 3 % (4-9) L 02/06/18 05:45 Plt Morphology Comment Normal (NORMAL) 02/06/18 05:45 RBC Morphology Normal (NORMAL) 02/06/18 05:45 Sample Site Right radial 02/06/18 16:00 ABG pH 7.430 (7.35-7.45) 02/06/18 16:00 ABG pCO2 39.0 mmHg (35.0-45.0) 02/06/18 16:00 ABG pO2 40.0 mmHg (80.0-100.0) L* 02/06/18 16:00 ABG HCO3 25.9 mmol/L (22-26) 02/06/18 16:00 ABG O2 Saturation 77.0 % (90-100) L* 02/06/18 16:00 ABG Base Excess 1.5 mmol/L (-2.0-2.0) 02/06/18 16:00 Diomedes Test Pos 02/06/18 16:00 A-a Gradient 161.0 mmHg 02/06/18 16:00 FiO2 35 02/06/18 16:00 Blood Gas Comments Zachery well aw 02/06/18 16:00 Sodium 142 mmol/L (136-145) 02/06/18 05:45 Corrected Sodium 144 mmol/L (136-145) 02/06/18 05:45 Potassium 4.0 mmol/L (3.5-5.1) 02/06/18 05:45 Chloride 108 mmol/L (98-107) H 02/06/18 05:45 Carbon Dioxide 26.1 mmol/L (21-32) 02/06/18 05:45 BUN 18 mg/dL (7-18) 02/06/18 05:45 Creatinine 1.03 mg/dL (0.70-1.30) 02/06/18 05:45 Est GFR (MDRD) Af Amer > 60 (>60) 02/06/18 05:45 Est GFR (MDRD) Non-Af > 60 (>60) 02/06/18 05:45 Glucose 173 mg/dL (65-99) H 02/06/18 05:45 Calcium 8.1 mg/dL (8.5-10.1) L 02/06/18 05:45 Corrected Calcium 9.3 mg/dL (8.5-10.1) 02/06/18 05:45 Total Bilirubin 1.00 mg/dL (0.2-1.0) 02/06/18 05:45 AST 24 Units/L (15-37) 02/06/18 05:45 ALT 31 Units/L (12-78) 02/06/18 05:45 Alkaline Phosphatase 46 Units/L (46-116) 02/06/18 05:45 Creatine Kinase 95 Units/L (39-308) 02/02/18 15:28 CK-MB (CK-2) 1.9 ng/mL (0-4.0) 02/02/18 15:28 CK/CKMB % Calc 2.0 % (<4) 02/02/18 15:28 Troponin I 0.03 ng/mL (0-1.5) 02/02/18 15:28 Total Protein 5.6 g/dL (6.4-8.2) L 02/06/18 05:45 Albumin 2.5 g/dL (3.4-5.0) L 02/06/18 05:45 Globulin 3.1 g/dL (2.5-4.5) 02/06/18 05:45 Albumin/Globulin Ratio 0.8 Ratio (1.1-2.1) L 02/06/18 05:45 Specimen Type Clean catch urine 02/02/18 14:07 Urine Color Dark yellow (YELLOW) 02/02/18 14:07 Urine Appearance Cloudy (CLEAR) 02/02/18 14:07 Urine pH 5.0 (5.0 - 8.0) 02/02/18 14:07 Ur Specific [place] 1.030 (1.000-1.030) 02/02/18 14:07 Urine Protein 2+ (NEGATIVE) 02/02/18 14:07 Urine Glucose (UA) Negative (NEGATIVE) 02/02/18 14:07 Urine Ketones 1+ (NEGATIVE) 02/02/18 14:07 Urine Occult Blood Negative (NEGATIVE) 02/02/18 14:07 Urine Nitrite Negative (NEGATIVE) 02/02/18 14:07 Urine Bilirubin Negative (NEGATIVE) 02/02/18 14:07 Urine Urobilinogen Normal (NORMAL) 02/02/18 14:07 Ur Leukocyte Esterase Negative (NEGATIVE) 02/02/18 14:07 Urine RBC 0-2 /HPF (NONE SEEN) 02/02/18 14:07 Urine WBC 0-2 /HPF (NONE SEEN) 02/02/18 14:07 Ur Squamous Epith Cells Few /HPF (NEGATIVE) 02/02/18 14:07 Calcium Oxalate Crystal Few /HPF (NEGATIVE) 02/02/18 14:07 Amorphous Sediment 1+ /HPF (NEGATIVE) 02/02/18 14:07 Urine Bacteria Trace /HPF (NEGATIVE) 02/02/18 14:07 Urine Mucus Few /HPF (NEGATIVE) 02/02/18 14:07 Ur Culture Indicated? No/not indicated 02/02/18 14:07 - Plan (1) SOB (shortness of breath) Status: Acute Plan: BIPAP, SUPPLEMENTAL O2, SERIAL CE. EKGS CXR ON ADMISSION, SERIAL ABG'S. JET NEBS, BLOOD AND SPUTUM CULTURES ORDERED ON AM. LOVENOX SQ, BP AND CARDIAC MONITORING. IV ATBX, AM LABS (2) Acute respiratory acidosis Status: Acute (3) COPD (chronic obstructive pulmonary disease) Status: Acute Qualifiers: COPD type: COPD with acute exacerbation Qualified Code(s): J44.1 - Chronic obstructive pulmonary disease with (acute) exacerbation (4) Multifocal pneumonia Status: Acute (5) Acute and chronic respiratory failure Status: Acute (6) Acute and chronic respiratory failure with hypoxia Status: Acute
[2018-02-07] MEDS: DUONEB 0.5 MG/3 MG NEB SCH ×4 (01:30→12:17)
[2018-02-07] MEDS ORDERED: NS 100 ML IV + SPIKE MINIBAG* 100 ML IV ONE ×2 (05:11→14:23)
[2018-02-07] MEDS: ZOSYN VIAL 4.5 GRAMS IV SCH ×2 (05:41→14:47)
[2018-02-07] MEDS: SOLU-Medrol 40 MG VIAL IVP SCH ×2 (05:41→14:48)
[2018-02-07 06:45] LABS: BASOPHILS % (AUTO) 0.3 % (0.2-1.0); HEMATOCRIT 52.7 % (42.0-54.0); HEMOGLOBIN 17.9 g/dL (13.5-18.0); LYMPHOCYTES # (AUTO) 0.7 X10^3/uL (1.3-2.9); LYMPHOCYTES % (AUTO) 9.5 % (21.0-51.0); MEAN CORPUSCULAR HEMOGLOBIN 30.6 pg (27.0-34.0); MEAN CORPUSCULAR HGB CONC 33.9 g/dL (33.0-35.0); MEAN CORPUSCULAR VOLUME 90.2 fL (80.0-100.0); MEAN PLATELET VOLUME 8.3 fL (7.4-11.0); MONOCYTES # (AUTO) 0.5 x10^3/uL (0.3-0.8); NEUTROPHILS # (AUTO) 6.1 x10^3/uL (2.2-4.8); NEUTROPHILS % (AUTO) 83.2 % (42.0-75.0); PLATELET COUNT 111 X10^3/uL (150.0-450.0); RED BLOOD COUNT 5.83 X10^6/uL (4.7-6.0); RED CELL DISTRIBUTION WIDTH 15.8 % (11.6-16.5); WHITE BLOOD COUNT 7.3 X10^3/uL (3.6-10.0)
[2018-02-07 06:55] LABS: ALANINE AMINOTRANSFERASE 34 Units/L (12-78); ALBUMIN 2.7 g/dL (3.4-5.0); ALKALINE PHOSPHATASE 51 Units/L (46-116); ASPARTATE AMINO TRANSFERASE 26 Units/L (15-37); BLOOD UREA NITROGEN 24 mg/dL (7-18); CALCIUM 8.3 mg/dL (8.5-10.1); CARBON DIOXIDE 29.2 mmol/L (21-32); CHLORIDE 104 mmol/L (98-107); COR CA(FOR HYPOALB) 9.3 mg/dL (8.5-10.1); COR NA(FOR HYPERGLY) 143 mmol/L (136-145); CREATININE 1.24 mg/dL (0.70-1.30); SODIUM 141 mmol/L (136-145); TOTAL PROTEIN 5.9 g/dL (6.4-8.2); eGFR NON BLACK RACES > 60 (>60)
[2018-02-07 07:10] LABS: PLATELET MORPHOLOGY COMMENT NORMAL (NORMAL)
[2018-02-07 07:58] LABS: ABG BASE EXCESS 8.1 mmol/L (-2.0-2.0)
[2018-02-07 08:00] LABS: ABG ALLEN TEST POS; FRACTIONATED INSPIRED OXYGEN 40
[2018-02-07] MEDS: PULMICORT NEB TX 0.5 MG NEB SCH (08:51)
[2018-02-07] MEDS: BROVANA IN SCH (08:51)
[2018-02-07] MEDS ORDERED: LASIX IVP SCH ×2 (09:00→10:00)
[2018-02-07] MEDS: LEVAQUIN PREMIX IV 500 MG 500 MG/100 ML BAG IV SCH (09:05)
[2018-02-07] MEDS: LIPITOR TAB 20 MG PO SCH (09:05)
[2018-02-07] MEDS: TOPROL XL PO SCH (09:05)
[2018-02-07] MEDS: PROTONIX INJ 40 MG VIAL IVP SCH (09:05)
[2018-02-07] MEDS: ASPIRIN EC 81 MG PO SCH (09:05)
[2018-02-07] MEDS: ZESTRIL TAB 10 MG PO SCH (09:05)
[2018-02-07 10:40] LABS: ABG BASE EXCESS 5.4 mmol/L (-2.0-2.0)
[2018-02-07 10:41] LABS: ABG ALLEN TEST POS; FRACTIONATED INSPIRED OXYGEN 50
[2018-02-07] MEDS ORDERED: NS 1000 ML 1,000 ML IV SCH (11:00)
--- NOTE | 2018-02-07 11:24 | RAD ---
HISTORY: Shortness of breath Study: Chest AP portable Comparison: 02/06/2018 Findings: The heart is enlarged. No congestive heart failure is noted. Right basilar lung infiltrate is unchang ed and is most consistent with pneumonia. The remainder of the lung alfredo are free of acute infiltra ligia. Diffuse interstitial lung changes are present. The pleural effusions described on the recent [facility] CT are not well demonstrated on plain film. IMPRESSION: No change right lower lobe pneumonia Mild cardiomegaly without congestive heart failure No change diffuse interstitial lung disease Reported By:
[2018-02-07] MEDS ORDERED: XYLOCAINE JELLY TOP PRN (11:27)
[2018-02-07 12:01] LABS: ABG BASE EXCESS 6.4 mmol/L (-2.0-2.0)
[2018-02-07 12:02] LABS: ABG HCO3 30.5 mmol/L (22-26); FRACTIONATED INSPIRED OXYGEN 100
--- NOTE | 2018-02-07 13:14 | PCM.PROG ---
Progress Note - Progress Note for Day of Date of Exam: 02/06/18 - Subjective Subjective: 67 WM ER ADMISSION WITH ACUTE ON CHRONIC RESP FAILURE, PNEUMONIA, AND CHEST PAIN. PT HAD SERIAL CE ENZYMES ON ADMISSION, ICU FOR CONTINUOUS CARDIAC MONITORING AND BIPAP MANAGEMENT. PT IS BEING TREATED WITH IV ATBX, AGRESSIVE RESP TREATMENTS, BROVANNA, BUDESONIDE. PT CONTINUES WITH BIPAP AT 40%, PLAN TO ATTEMPT TO TAPER TO VENTI MASK TODAY TOLERATED, PT TO HAVE CTA OF CHEST, DISCUSSED PT'S LABS DIAGNOSTIC TESTS WITH PT AND FAMILY, ECHO ORDERED. STRICT I & OS - Past Medical Family Social History Past Med/Fam/Surg Hx: No changes since H&P Allergies: Allergies No Known Drug Allergies Allergy (Verified 02/02/18 03:06) - Review of Systems ROS: No change since H&P - Vital Signs and I&O's Vital Signs: Temperature 98.0 F Pulse Rate [Left Brachial] 67 Pulse Rate 80 Respiratory Rate 18 Blood Pressure [Left Arm] 125/70 Blood Pressure 168/101 O2 Sat by Pulse Oximetry 100 Intake and Output: Intake & Output 02/05/18 02/06/18 02/07/18 02/08/18 11:59 11:59 11:59 11:59 Intake Total 2950 / 2950 2740 / 2740 2795 / 2795 Output Total 1310 / 1310 1350 / 1350 5125 / 5125 Balance 1640 / 1640 1390 / 1390 -2330 / -2330 - Physical Exam Oriented: Normal Eyes: Normal Ear: Normal Nose: Normal Throat: Dry Respiratory: Diminished Cardiovascular: Tachycardia, Edema : Normal Auscultation: Bowel Sounds: Normal Tenderness: Normal Skin: Decreased Turgur Musculoskeletal: Back:Lumbar Psychiatric: Anxiety Mood Description: Anxious Affect: Anxious Speech Pattern: Clear, Appropriate - Laboratory and Diagnostics Result Diagrams: 02/07/18 06:26 02/07/18 06:26 Labs: 02/02/18 04:30 Blood Blood Culture - Final 02/02/18 04:20 Blood Blood Culture - Final 02/02/18 14:07 Sputum - Expectorated Sputum Sputum Culture - Final 02/02/18 14:07 Sputum - Expectorated Sputum - Final Laboratory WBC 7.3 X10^3/uL (3.6-10.0) 02/07/18 06:26 RBC 5.83 X10^6/uL (4.7-6.0) 02/07/18 06:26 Hgb 17.9 g/dL (13.5-18.0) 02/07/18 06:26 Hct 52.7 % (42.0-54.0) 02/07/18 06:26 MCV 90.2 fL (80.0-100.0) 02/07/18 06:26 MCH 30.6 pg (27.0-34.0) 02/07/18 06: MCHC 33.9 g/dL (33.0-35.0) 02/07/18 06:26 RDW 15.8 % (11.6-16.5) 02/07/18 06:26 Plt Count 111 X10^3/uL (150.0-450.0) L 02/07/18 06:26 Plt Count Comment Decreased (ADEQUATE) 02/07/18 06:26 MPV 8.3 fL (7.4-11.0) 02/07/18 06:26 Neut % (Auto) 83.2 % (42.0-75.0) H 02/07/18 06:26 Lymph % (Auto) 9.5 % (21.0-51.0) L 02/07/18 06:26 [place] % (Auto) 7.0 % (0.0-13.0) 02/07/18 06:26 Eos % (Auto) 0.0 % (0.9-2.9) L 02/07/18 06:26 Baso % (Auto) 0.3 % (0.2-1.0) 02/07/18 06: Neut # (Auto) 6.1 x10^3/uL (2.2-4.8) H 02/07/18 06:26 Lymph # (Auto) 0.7 X10^3/uL (1.3-2.9) L 02/07/18 06:26 [place] # (Auto) 0.5 x10^3/uL (0.3-0.8) 02/07/18 06:26 Eos # (Auto) 0.0 x10^3/uL (0.0-0.2) 02/07/18 06:26 Baso # (Auto) 0.0 X10^3/uL (0.0-0.1) 02/07/18 06:26 Absolute Nucleated RBC 0.1 /100WBC 02/07/18 06:26 Total Counted 100 02/07/18 06:26 Neutrophils % (Manual) 81 % (39-76) H 02/07/18 06:26 Band Neutrophils % 3 % (0-10) 02/06/18 05:45 Lymphocytes % (Manual) 10 % (13-43) L 02/07/18 06:26 Monocytes % (Manual) 9 % (4-9) 02/07/18 06:26 Plt Morphology Comment Normal (NORMAL) 02/07/18 06:26 RBC Morphology Normal (NORMAL) 02/07/18 06:26 Sample Site Rbr 02/07/18 11:45 ABG pH 7.480 (7.35-7.45) H 02/07/18 11:45 ABG pCO2 41.0 mmHg (35.0-45.0) 02/07/18 11:45 ABG pO2 279.0 mmHg (80.0-100.0) H 02/07/18 11:45 ABG HCO3 30.5 mmol/L (22-26) H* 02/07/18 11:45 ABG O2 Saturation 100.0 % (90-100) 02/07/18 11:45 ABG Base Excess 6.4 mmol/L (-2.0-2.0) H 02/07/18 11:45 Diomedes Test N/a 02/07/18 11:45 A-a Gradient 383.0 mmHg 02/07/18 11:45 FiO2 100 02/07/18 11:45 Blood Gas Comments Pt jessie well elj 02/07/18 11:45 Sodium 141 mmol/L (136-145) 02/07/18 06:26 Corrected Sodium 143 mmol/L (136-145) 02/07/18 06:26 Potassium 3.7 mmol/L (3.5-5.1) 02/07/18 06:26 Chloride 104 mmol/L (98-107) 02/07/18 06:26 Carbon Dioxide 29.2 mmol/L (21-32) 02/07/18 06:26 BUN 24 mg/dL (7-18) H 02/07/18 06:26 Creatinine 1.24 mg/dL (0.70-1.30) 02/07/18 06:26 Est GFR (MDRD) Af Amer > 60 (>60) 02/07/18 06:26 Est GFR (MDRD) Non-Af > 60 (>60) 02/07/18 06:26 Glucose 172 mg/dL (65-99) H 02/07/18 06:26 Calcium 8.3 mg/dL (8.5-10.1) L 02/07/18 06:26 Corrected Calcium 9.3 mg/dL (8.5-10.1) 02/07/18 06:26 Total Bilirubin 1.40 mg/dL (0.2-1.0) H 02/07/18 06:26 AST 26 Units/L (15-37) 02/07/18 06:26 ALT 34 Units/L (12-78) 02/07/18 06:26 Alkaline Phosphatase 51 Units/L (46-116) 02/07/18 06:26 Creatine Kinase 95 Units/L (39-308) 02/02/18 15:28 CK-MB (CK-2) 1.9 ng/mL (0-4.0) 02/02/18 15:28 CK/CKMB % Calc 2.0 % (<4) 02/02/18 15:28 Troponin I 0.03 ng/mL (0-1.5) 02/02/18 15:28 Total Protein 5.9 g/dL (6.4-8.2) L 02/07/18 06:26 Albumin 2.7 g/dL (3.4-5.0) L 02/07/18 06:26 Globulin 3.2 g/dL (2.5-4.5) 02/07/18 06:26 Albumin/Globulin Ratio 0.8 Ratio (1.1-2.1) L 02/07/18 06:26 Specimen Type Clean catch urine 02/02/18 14:07 Urine Color Dark yellow (YELLOW) 02/02/18 14:07 Urine Appearance Cloudy (CLEAR) 02/02/18 14:07 Urine pH 5.0 (5.0 - 8.0) 02/02/18 14:07 Ur Specific [place] 1.030 (1.000-1.030) 02/02/18 14:07 Urine Protein 2+ (NEGATIVE) 02/02/18 14:07 Urine Glucose (UA) Negative (NEGATIVE) 02/02/18 14:07 Urine Ketones 1+ (NEGATIVE) 02/02/18 14:07 Urine Occult Blood Negative (NEGATIVE) 02/02/18 14:07 Urine Nitrite Negative (NEGATIVE) 02/02/18 14:07 Urine Bilirubin Negative (NEGATIVE) 02/02/18 14:07 Urine Urobilinogen Normal (NORMAL) 02/02/18 14:07 Ur Leukocyte Esterase Negative (NEGATIVE) 02/02/18 14:07 Urine RBC 0-2 /HPF (NONE SEEN) 02/02/18 14:07 Urine WBC 0-2 /HPF (NONE SEEN) 02/02/18 14:07 Ur Squamous Epith Cells Few /HPF (NEGATIVE) 02/02/18 14:07 Calcium Oxalate Crystal Few /HPF (NEGATIVE) 02/02/18 14:07 Amorphous Sediment 1+ /HPF (NEGATIVE) 02/02/18 14:07 Urine Bacteria Trace /HPF (NEGATIVE) 02/02/18 14:07 Urine Mucus Few /HPF (NEGATIVE) 02/02/18 14:07 Ur Culture Indicated? No/not indicated 02/02/18 14:07 - Plan (1) SOB (shortness of breath) Status: Acute Plan: BIPAP, SUPPLEMENTAL O2, SERIAL CE. EKGS CXR ON ADMISSION, SERIAL ABG'S. JET NEBS, BLOOD AND SPUTUM CULTURES ORDERED ON AM. LOVENOX SQ, BP AND CARDIAC MONITORING. IV ATBX, AM LABS (2) Acute respiratory acidosis Status: Acute (3) COPD (chronic obstructive pulmonary disease) Status: Acute Qualifiers: COPD type: COPD with acute exacerbation Qualified Code(s): J44.1 - Chronic obstructive pulmonary disease with (acute) exacerbation (4) Multifocal pneumonia Status: Acute Plan: IV ATBX, RESP THERAPY. CTA CHEST (5) Acute and chronic respiratory failure Status: Acute (6) Acute and chronic respiratory failure with hypoxia Status: Acute (7) CAD (coronary artery disease) Status: Acute Plan: BLOOD PRESSURE CONTROL, CONTINUOUS CARDIAC MONITORING
--- NOTE | 2018-02-07 13:20 | PCM.PROG ---
Progress Note - Progress Note for Day of Date of Exam: 02/07/18 - Subjective Subjective: 67 WM ER ADMISSION WITH ACUTE ON CHRONIC RESP FAILURE, PNEUMONIA, AND CHEST PAIN. PT HAD SERIAL CE ENZYMES ON ADMISSION, ICU FOR CONTINUOUS CARDIAC MONITORING AND BIPAP MANAGEMENT. FOR PNEUMONIA PT HAS BEEN RECEIVING IV LEVAQUIN AND IV ZOSYN. PT IS ON VENTI MASK THIS AM, WITH O2 SAT 89-90, TO LERATING WELL AT TIME OF ASSESSMENT. 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 Consolidative airspace opacity in the right lower lobe. Mediastinal lymphadenopathy with several enlarged lymph nodes measuring greater than 2 cm. Bilateral pleural effusions, right greater than left. ECHO REVEALED SEVERE PULMONARY HTN. PT GIVEN LASIX 40MGIV X1 DOSE WITH APPROX 4L URINE OUTPUT WITH REPORTS OF IMPROVED SOB AT REST, ON VENT MASK THIS AM, WITH REPEAT ABG ORDRED FOR 1 HR POST INITIATING VENTI. PT BUN 24/CREAT 1.24, DISCUSSED WITH PT AND FAMILY NEED FOR CARDIAC EVALUATION. PT AND FAMILY AGREES FOR TRANSFER TO TERTIARY CARE. - Past Medical Family Social History Past Med/Fam/Surg Hx: No changes since H&P Allergies: Allergies No Known Drug Allergies Allergy (Verified 02/02/18 03:06) - Review of Systems ROS: No change since H&P - Vital Signs and I&O's Vital Signs: Temperature 98.0 F Pulse Rate [Left Brachial] 67 Pulse Rate 80 Respiratory Rate 18 Blood Pressure [Left Arm] 125/70 Blood Pressure 168/101 O2 Sat by Pulse Oximetry 100 Intake and Output: Intake & Output 02/05/18 02/06/18 02/07/18 02/08/18 11:59 11:59 11:59 11:59 Intake Total 2950 / 2950 2740 / 2740 2795 / 2795 Output Total 1310 / 1310 1350 / 1350 5125 / 5125 Balance 1640 / 1640 1390 / 1390 -2330 / -2330 - Physical Exam Oriented: Normal Eyes: Normal Ear: Normal Nose: Normal Throat: Dry Respiratory: Diminished Cardiovascular: Tachycardia, Edema : Normal Auscultation: Bowel Sounds: Normal Tenderness: Normal Skin: Decreased Turgur Musculoskeletal: Back:Lumbar Psychiatric: Anxiety Mood Description: Anxious Affect: Anxious Speech Pattern: Clear, Appropriate - Laboratory and Diagnostics Result Diagrams: 02/07/18 06:26 02/07/18 06:26 Labs: 02/02/18 04:30 Blood Blood Culture - Final 02/02/18 04:20 Blood Blood Culture - Final 02/02/18 14:07 Sputum - Expectorated Sputum Sputum Culture - Final 02/02/18 14:07 Sputum - Expectorated Sputum - Final Laboratory WBC 7.3 X10^3/uL (3.6-10.0) 02/07/18 06:26 RBC 5.83 X10^6/uL (4.7-6.0) 02/07/18 06:26 Hgb 17.9 g/dL (13.5-18.0) 02/07/18 06:26 Hct 52.7 % (42.0-54.0) 02/07/18 06:26 MCV 90.2 fL (80.0-100.0) 02/07/18 06:26 MCH 30.6 pg (27.0-34.0) 02/07/18 06:26 MCHC 33.9 g/dL (33.0-35.0) 02/07/18 06:26 RDW 15.8 % (11.6-16.5) 02/07/18 06:26 Plt Count 111 X10^3/uL (150.0-450.0) L 02/07/18 06:26 Plt Count Comment Decreased (ADEQUATE) 02/07/18 06:26 MPV 8.3 fL (7.4-11.0) 02/07/18 06:26 Neut % (Auto) 83.2 % (42.0-75.0) H 02/07/18 06:26 Lymph % (Auto) 9.5 % (21.0-51.0) L 02/07/18 06:26 [place] % (Auto) 7.0 % (0.0-13.0) 02/07/18 06:26 Eos % (Auto) 0.0 % (0.9-2.9) L 02/07/18 06:26 Baso % (Auto) 0.3 % (0.2-1.0) 02/07/18 06:26 Neut # (Auto) 6.1 x10^3/uL (2.2-4.8) H 02/07/18 06:26 Lymph # (Auto) 0.7 X10^3/uL (1.3-2.9) L 02/07/18 06:26 [place] # (Auto) 0.5 x10^3/uL (0.3-0.8) 02/07/18 06:26 Eos # (Auto) 0.0 x10^3/uL (0.0-0.2) 02/07/18 06:26 Baso # (Auto) 0.0 X10^3/uL (0.0-0.1) 02/07/18 06:26 Absolute Nucleated RBC 0.1 /100WBC 02/07/18 06:26 Total Counted 100 02/07/18 06:26 Neutrophils % (Manual) 81 % (39-76) H 02/07/18 06:26 Band Neutrophils % 3 % (0-10) 02/06/18 05:45 Lymphocytes % (Manual) 10 % (13-43) L 02/07/18 06:26 Monocytes % (Manual) 9 % (4-9) 02/07/18 06:26 Plt Morphology Comment Normal (NORMAL) 02/07/18 06:26 RBC Morphology Normal (NORMAL) 02/07/18 06:26 Sample Site Rbr 02/07/18 11:45 ABG pH 7.480 (7.35-7.45) H 02/07/18 11:45 ABG pCO2 41.0 mmHg (35.0-45.0) 02/07/18 11:45 ABG pO2 279.0 mmHg (80.0-100.0) H 02/07/18 11:45 ABG HCO3 30.5 mmol/L (22-26) H* 02/07/18 11:45 ABG O2 Saturation 100.0 % (90-100) 02/07/18 11:45 ABG Base Excess 6.4 mmol/L (-2.0-2.0) H 02/07/18 11:45 Diomedes Test N/a 02/07/18 11:45 A-a Gradient 383.0 mmHg 02/07/18 11:45 FiO2 100 02/07/18 11:45 Blood Gas Comments Pt jessie well elj 02/07/18 11:45 Sodium 141 mmol/L (136-145) 02/07/18 06:26 Corrected Sodium 143 mmol/L (136-145) 02/07/18 06:26 Potassium 3.7 mmol/L (3.5-5.1) 02/07/18 06:26 Chloride 104 mmol/L (98-107) 02/07/18 06:26 Carbon Dioxide 29.2 mmol/L (21-32) 02/07/18 06:26 BUN 24 mg/dL (7-18) H 02/07/18 06:26 Creatinine 1.24 mg/dL (0.70-1.30) 02/07/18 06:26 Est GFR (MDRD) Af Amer > 60 (>60) 02/07/18 06:26 Est GFR (MDRD) Non-Af > 60 (>60) 02/07/18 06:26 Glucose 172 mg/dL (65-99) H 02/07/18 06:26 Calcium 8.3 mg/dL (8.5-10.1) L 02/07/18 06:26 Corrected Calcium 9.3 mg/dL (8.5-10.1) 02/07/18 06:26 Total Bilirubin 1.40 mg/dL (0.2-1.0) H 02/07/18 06:26 AST 26 Units/L (15-37) 02/07/18 06:26 ALT 34 Units/L (12-78) 02/07/18 06:26 Alkaline Phosphatase 51 Units/L (46-116) 02/07/18 06:26 Creatine Kinase 95 Units/L (39-308) 02/02/18 15:28 CK-MB (CK-2) 1.9 ng/mL (0-4.0) 02/02/18 15:28 CK/CKMB % Calc 2.0 % (<4) 02/02/18 15:28 Troponin I 0.03 ng/mL (0-1.5) 02/02/18 15:28 Total Protein 5.9 g/dL (6.4-8.2) L 02/07/18 06:26 Albumin 2.7 g/dL (3.4-5.0) L 02/07/18 06:26 Globulin 3.2 g/dL (2.5-4.5) 02/07/18 06:26 Albumin/Globulin Ratio 0.8 Ratio (1.1-2.1) L 02/07/18 06:26 Specimen Type Clean catch urine 02/02/18 14:07 Urine Color Dark yellow (YELLOW) 02/02/18 14:07 Urine Appearance Cloudy (CLEAR) 02/02/18 14:07 Urine pH 5.0 (5.0 - 8.0) 02/02/18 14:07 Ur Specific [place] 1.030 (1.000-1.030) 02/02/18 14:07 Urine Protein 2+ (NEGATIVE) 02/02/18 14:07 Urine Glucose (UA) Negative (NEGATIVE) 02/02/18 14:07 Urine Ketones 1+ (NEGATIVE) 02/02/18 14:07 Urine Occult Blood Negative (NEGATIVE) 02/02/18 14:07 Urine Nitrite Negative (NEGATIVE) 02/02/18 14:07 Urine Bilirubin Negative (NEGATIVE) 02/02/18 14:07 Urine Urobilinogen Normal (NORMAL) 02/02/18 14:07 Ur Leukocyte Esterase Negative (NEGATIVE) 02/02/18 14:07 Urine RBC 0-2 /HPF (NONE SEEN) 02/02/18 14:07 Urine WBC 0-2 /HPF (NONE SEEN) 02/02/18 14:07 Ur Squamous Epith Cells Few /HPF (NEGATIVE) 02/02/18 14:07 Calcium Oxalate Crystal Few /HPF (NEGATIVE) 02/02/18 14:07 Amorphous Sediment 1+ /HPF (NEGATIVE) 02/02/18 14:07 Urine Bacteria Trace /HPF (NEGATIVE) 02/02/18 14:07 Urine Mucus Few /HPF (NEGATIVE) 02/02/18 14:07 Ur Culture Indicated? No/not indicated 02/02/18 14:07 - Plan (1) SOB (shortness of breath) Status: Acute Plan: BIPAP, SUPPLEMENTAL O2, SERIAL CE ON ADMISSION. EKGS CXR ON ADMISSION, SERIAL ABG'S. ECHO REVEALED PULMONARY HTN,. CTA WITH PNEUMONIA AND PLEURAL EFFUSIONS, CASTRO CATH WITH STRICT I & OS. JET NEBS, BLOOD AND SPUTUM CULTURES ORDERED ON AM. LOVENOX SQ, BP AND CARDIAC MONITORING. IV ATBX, AM LABS (2) Acute respiratory acidosis Status: Acute (3) COPD (chronic obstructive pulmonary disease) Status: Acute Qualifiers: COPD type: COPD with acute exacerbation Qualified Code(s): J44.1 - Chronic obstructive pulmonary disease with (acute) exacerbation (4) Multifocal pneumonia Status: Acute Plan: IV ATBX, RESP THERAPY. CTA CHEST (5) Acute and chronic respiratory failure Status: Acute (6) Acute and chronic respiratory failure with hypoxia Status: Acute (7) CAD (coronary artery disease) Status: Acute Plan: BLOOD PRESSURE CONTROL, CONTINUOUS CARDIAC MONITORING
[2018-02-07 15:27] LABS: BILIRUBIN,URINE NEGATIVE (NEGATIVE); BLOOD/HEMOGLOBIN,URINE 4+ (NEGATIVE); GLUCOSE, URINE NEGATIVE (NEGATIVE); KETONES,URINE NEGATIVE (NEGATIVE); LEUKOCYTE ESTERASE ,URINE 1+ (NEGATIVE); NITRITES,URINE NEGATIVE (NEGATIVE); PROTEIN,URINE 2+ (NEGATIVE); UROBILINOGEN,URINE NORMAL (NORMAL)
[2018-02-07 15:28] LABS: APPEARANCE,URINE CLEAR (CLEAR); COLOR,URINE YELLOW (YELLOW)
[2018-02-07 15:37] LABS: AMORPHOUS SEDIMENT,UR TRACE /HPF (NEGATIVE); BACTERIA,URINE NEGATIVE /HPF (NEGATIVE); SQUAMOUS EPITHELIAL CELL,UR FEW /HPF (NEGATIVE)
[2018-02-07 15:38] LABS: MUCUS,URINE MODERATE /HPF (NEGATIVE)
[2018-02-07 16:15] VITALS: BP 164/89
--- NOTE | 2018-02-16 15:05 | PCM.DCPLAN ---
Discharge Summary - Admission Date Date of Admission: 02/02/18 - Discharge Date Discharge Date: 02/07/18 - Admission Diagnoses (1) Acute and chronic respiratory failure with hypoxia Status: Acute (2) CAD (coronary artery disease) Status: Acute (3) COPD (chronic obstructive pulmonary disease) Status: Acute (4) Multifocal pneumonia Status: Acute - Discharge Diagnoses Discharge Diagnosis: same as admission diagnosis - Discharge Medications Discharge Medications: Home Medication List aspirin 81 mg PO QDAY 02/02/18 [History] atorvastatin 20 mg PO QDAY 02/02/18 [History] carvedilol 12.5 mg PO BID 02/02/18 [History] Prescriptions: - Hospital Course Vital Signs: Temperature 98.0 F Pulse Rate [Left Brachial] 67 Pulse Rate 88 Respiratory Rate 25 Blood Pressure [Left Arm] 125/70 Blood Pressure 164/89 O2 Sat by Pulse Oximetry 100 Latest Lab Results: Laboratory Last Values WBC 7.3 X10^3/uL (3.6-10.0) 02/07/18 06:26 RBC 5.83 X10^6/uL (4.7-6.0) 02/07/18 06:26 Hgb 17.9 g/dL (13.5-18.0) 02/07/18 06:26 Hct 52.7 % (42.0-54.0) 02/07/18 06:26 MCV 90.2 fL (80.0-100.0) 02/07/18 06:26 MCH 30.6 pg (27.0-34.0) 02/07/18 06:26 MCHC 33.9 g/dL (33.0-35.0) 02/07/18 06:26 RDW 15.8 % (11.6-16.5) 02/07/18 06:26 Plt Count 111 X10^3/uL (150.0-450.0) L 02/07/18 06:26 Plt Count Comment Decreased (ADEQUATE) 02/07/18 06:26 MPV 8.3 fL (7.4-11.0) 02/07/18 06:26 Neut % (Auto) 83.2 % (42.0-75.0) H 02/07/18 06:26 Lymph % (Auto) 9.5 % (21.0-51.0) L 02/07/18 06:26 [place] % (Auto) 7.0 % (0.0-13.0) 02/07/18 06:26 Eos % (Auto) 0.0 % (0.9-2.9) L 02/07/18 06:26 Baso % (Auto) 0.3 % (0.2-1.0) 02/07/18 06:26 Neut # (Auto) 6.1 x10^3/uL (2.2-4.8) H 02/07/18 06:26 Lymph # (Auto) 0.7 X10^3/uL (1.3-2.9) L 02/07/18 06:26 [place] # (Auto) 0.5 x10^3/uL (0.3-0.8) 02/07/18 06:26 Eos # (Auto) 0.0 x10^3/uL (0.0-0.2) 02/07/18 06:26 Baso # (Auto) 0.0 X10^3/uL (0.0-0.1) 02/07/18 06:26 Absolute Nucleated RBC 0.1 /100WBC 02/07/18 06:26 Total Counted 100 02/07/18 06:26 Neutrophils % (Manual) 81 % (39-76) H 02/07/18 06:26 Band Neutrophils % 3 % (0-10) 02/06/18 05:45 Lymphocytes % (Manual) 10 % (13-43) L 02/07/18 06:26 Monocytes % (Manual) 9 % (4-9) 02/07/18 06:26 Plt Morphology Comment Normal (NORMAL) 02/07/18 06:26 RBC Morphology Normal (NORMAL) 02/07/18 06:26 Sample Site Rbr 02/07/18 11:45 ABG pH 7.480 (7.35-7.45) H 02/07/18 11:45 ABG pCO2 41.0 mmHg (35.0-45.0) 02/07/18 11:45 ABG pO2 279.0 mmHg (80.0-100.0) H 02/07/18 11:45 ABG HCO3 30.5 mmol/L (22-26) H* 02/07/18 11:45 ABG O2 Saturation 100.0 % (90-100) 02/07/18 11:45 ABG Base Excess 6.4 mmol/L (-2.0-2.0) H 02/07/18 11:45 Diomedes Test N/a 02/07/18 11:45 A-a Gradient 383.0 mmHg 02/07/18 11:45 FiO2 100 02/07/18 11:45 Blood Gas Comments Pt jessie well elj 02/07/18 11:45 Sodium 141 mmol/L (136-145) 02/07/18 06:26 Corrected Sodium 143 mmol/L (136-145) 02/07/18 06:26 Potassium 3.7 mmol/L (3.5-5.1) 02/07/18 06:26 Chloride 104 mmol/L (98-107) 02/07/18 06:26 Carbon Dioxide 29.2 mmol/L (21-32) 02/07/18 06:26 BUN 24 mg/dL (7-18) H 02/07/18 06:26 Creatinine 1.24 mg/dL (0.70-1.30) 02/07/18 06:26 Est GFR (MDRD) Af Amer > 60 (>60) 02/07/18 06:26 Est GFR (MDRD) Non-Af > 60 (>60) 02/07/18 06:26 Glucose 172 mg/dL (65-99) H 02/07/18 06:26 Calcium 8.3 mg/dL (8.5-10.1) L 02/07/18 06:26 Corrected Calcium 9.3 mg/dL (8.5-10.1) 02/07/18 06:26 Total Bilirubin 1.40 mg/dL (0.2-1.0) H 02/07/18 06:26 AST 26 Units/L (15-37) 02/07/18 06:26 ALT 34 Units/L (12-78) 02/07/18 06:26 Alkaline Phosphatase 51 Units/L (46-116) 02/07/18 06:26 Creatine Kinase 95 Units/L (39-308) 02/02/18 15:28 CK-MB (CK-2) 1.9 ng/mL (0-4.0) 02/02/18 15:28 CK/CKMB % Calc 2.0 % (<4) 09/23/18 15:28 Troponin I 0.03 ng/mL (0-1.5) 02/02/18 15:28 Total Protein 5.9 g/dL (6.4-8.2) L 02/07/18 06:26 Albumin 2.7 g/dL (3.4-5.0) L 02/07/18 06:26 Globulin 3.2 g/dL (2.5-4.5) 02/07/18 06: Albumin/Globulin Ratio 0.8 Ratio (1.1-2.1) L 02/07/18 06:26 Specimen Type Catherized urine 02/07/18 15:05 Urine Color Yellow (YELLOW) 02/07/18 15:05 Urine Appearance Clear (CLEAR) 02/07/18 15:05 Urine pH 5.0 (5.0 - 8.0) 02/07/18 15:05 Ur Specific [place] 1.015 (1.000-1.030) 02/07/18 15:05 Urine Protein 2+ (NEGATIVE) 02/07/18 15:05 Urine Glucose (UA) Negative (NEGATIVE) 02/07/18 15:05 Urine Ketones Negative (NEGATIVE) 02/07/18 15:05 Urine Occult Blood 4+ (NEGATIVE) 02/07/18 15:05 Urine Nitrite Negative (NEGATIVE) 02/07/18 15:05 Urine Bilirubin Negative (NEGATIVE) 02/07/18 15:05 Urine Urobilinogen Normal (NORMAL) 02/07/18 15:05 Ur Leukocyte Esterase 1+ (NEGATIVE) 02/07/18 15:05 Urine RBC 3-5 /HPF (NONE SEEN) 02/07/18 15:05 Urine WBC 0-2 /HPF (NONE SEEN) 02/07/18 15:05 Ur Squamous Epith Cells Few /HPF (NEGATIVE) 02/07/18 15:05 Calcium Oxalate Crystal Few /HPF (NEGATIVE) 02/02/18 14:07 Amorphous Sediment Trace /HPF (NEGATIVE) 02/07/18 15:05 Urine Bacteria Negative /HPF (NEGATIVE) 02/07/18 15:05 Urine Mucus Moderate /HPF (NEGATIVE) 02/07/18 15:05 Ur Culture Indicated? No/not indicated 02/07/18 15:05 Hospital Course: 67 WM ER ADMISSION WITH ACUTE ON CHRONIC RESP FAILURE, PNEUMONIA, AND CHEST PAIN. PT HAD SERIAL CE ENZYMES ON ADMISSION, ICU FOR CONTINUOUS CARDIAC MONITORING AND BIPAP MANAGEMENT. FOR PNEUMONIA PT HAS BEEN RECEIVING IV LEVAQUIN AND IV ZOSYN. PT IS ON VENTI MASK THIS AM, WITH O2 SAT 89-90, TOLERATING WELL AT TIME OF ASSESSMENT. 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 Consolidative airspace opacity in the right lower lobe. Mediastinal lymphadenopathy with several enlarged lymph nodes measuring greater than 2 cm. Bilateral pleural effusions, right greater than left. ECHO REVEALED SEVERE PULMONARY HTN. PT GIVEN LASIX 40MGIV X1 DOSE WITH APPROX 4L URINE OUTPUT WITH REPORTS OF IMPROVED SOB AT REST, ON VENT MASK THIS AM, WITH REPEAT ABG ORDRED FOR 1 HR POST INITIATING VENTI. PT BUN 24/CREAT 1.24, DISCUSSED WITH PT AND FAMILY NEED FOR CARDIAC EVALUATION. PT AND FAMILY AGREES FOR TRANSFER TO TERTIARY CARE. PATIENT WAS TRANSFERRED TO [facility] FURTHER FURTHER CARE AND EVALUATION. - Discharge Plan Disposition: 02 XFER [facility] HOSP Condition: Stable - Follow ups/Referrals [facility] ([facility] AIR VAC [facility] FOR SERVICES OF DR. DOLL AND DR. MUNGUIA) ELIZ SMITH [Primary Care Provider] - 1 WEEK - Instructions
== END 2018-02-07 16:55 | disposition short-term general hospital (02) | DRG 189 ==
LOC: ER 02:57 → ICU 06:08
PROVIDERS: ADMIT Internal Medicine; ATTEND Internal Medicine
DX: J96.21 Acute and chronic respiratory failure with hypoxia; J44.1 Chronic obstructive pulmonary disease with (acute) exacerbation; E87.2 Acidosis; R07.89 Other chest pain; M54.89 Other dorsalgia; I10 Essential (primary) hypertension; I27.20 Pulmonary hypertension, unspecified; Z23 Encounter for immunization; J90 Pleural effusion, not elsewhere classified; J16.8 Pneumonia due to other specified infectious organisms; I25.10 Atherosclerotic heart disease of native coronary artery without angina pectoris
CPT/HCPCS: 36415; 36600; 71010; 71045; 71275; 80053; 81001; 82550; 82553; 82803; 84484; 85014; 85018; 85025; 87040; 87070; 87205; 93005; 93010; 93306; 94640; 94660; 94669; 96365; 96367; 96374; 96375; 99221; 99231; 99284; 99285; A4222; A7030; C9113; J0360; J1940; J1956; J2543; J2920; J2930; J3490; J7030; J7050; J7620; J7626